=== PATIENT | female | born 1965 | race Caucasian/White ===

== ENCOUNTER 2021-04-20 00:03 | Day surgery (SDC) | payer OTHER, SELFPAY ==
[2021-04-06 13:26] VITALS: BMI 43.3
[2021-04-20 07:05] VITALS: BP 129/85; PULSE 77; RESP 18; TEMP 36.4; O2SAT 98; BMI 42.0
[2021-04-20] MEDS: LACTATED RINGERS 1,000 ML 150 ML IV CONT (07:26)
--- NOTE | 2021-04-20 08:08 | P.PNAN_ITS ---
Anes - Initial Pre Proc Eval Procedure: Operation Date: 04/20/21 08:30 Proposed Procedures p Screening Colonoscopy - Ilia Walker MD Date/Time: 04/20/21 08:08 Surgeon: Ilia Walker MD Pre Op Diagnosis: neoplasm screening Patient Data Age: 55 Gender: F Height: 1.6 m Weight: 107.8 kg Last Vital Signs Temp 97.6 F 04/20/21 07:05 Pulse 77 04/20/21 07:05 Resp 18 04/20/21 07:05 BP 129/85 04/20/21 07:05 Pulse Ox 98 04/20/21 07:05 Allergies Allergy/AdvReac Type Severity Reaction Status Date / Time Penicillins Allergy Unknown Verified 04/20/21 07:13 codeine AdvReac Vomiting Verified 04/20/21 07:13 levofloxacin AdvReac pain Verified 04/20/21 07:13 Home Medications Medication Instructions Recorded Confirmed Type cholecalciferol (vitamin D3) 25 mcg PO DAILY 04/06/21 04/20/21 History [Vitamin D3] ginkgo biloba 120 mg PO DAILY 04/06/21 04/20/21 History Patient hx anesthesia problems: none Family hx anesthesia problems: none Results Review: All pre-operative results and documents have been reviewed as part of the pre-operative evaluation. 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 Informed Consent: The patient's anesthetic plan and its attendant risks and benefits were discussed with the patient/family/POA. Questions were solicited and answers provided to the satisfaction of the patient/family/POA.
--- NOTE | 2021-04-20 08:12 | PM.HPGS ---
History of Present Illness History of Present Illness Consent: Risks, benefits, and alternatives have been discussed and questions answered. Patient agrees to proceed with procedure. Chief complaint: neoplasm screening Narrative: Pratibha Calvillo is a 55 year old female here for first colonoscopy, mother had colon cancer. Review of Systems Constitutional: Constitutional: Denies headache(s) and Denies weakness Eyes: Eyes: Denies blurry vision ENT: Reports Normal hearing present, Denies headache(s) and Denies neck pain Cardiovascular: Cardiovascular: Denies chest pain and Denies dyspnea Respiratory: Respiratory: Denies dyspnea Gastrointestinal: Gastrointestinal: Reports no additional gastrointestinal complaints Genitourinary: Genitourinary: Denies dysuria Musculoskeletal: Musculoskeletal: Denies neck pain Integumentary/Breasts: Skin/Breast: Denies dry skin Neurologic: Reports Normal hearing present, Denies headache(s) and Denies weakness Psychiatric: Psychiatric: Denies anxiety Endocrine: Endocrine: Denies change in body appearance Hematologic/Lymphatic: Hematologic/Lymphatic: Denies easy bleeding Allergic/Immunologic: Allergic/Immunologic: Denies urticaria PMFSH Past Medical History Medical History (Updated 04/20/21 @ 08:12 by Ilia Walker MD) Anemia Arthritis Family history of colon cancer in mother Mild hyperlipidemia Surgical History Surgical History History of hysterectomy History of nephrectomy Hx of cholecystectomy Hx of LASIK Social History Social History Smoking status: Former smoker Tobacco type: cigarettes Alcohol intake: never Alcohol use details: 3-4 drinks yearly Substance use: never Living arrangements: with family Additional occupation/education comments: client advocate Spiritual care concerns: No Meds Home Medications and Allergies Home Medications Medication Instructions Recorded Confirmed Type cholecalciferol (vitamin D3) 25 mcg PO DAILY 04/06/21 04/20/21 History [Vitamin D3] ginkgo biloba 120 mg PO DAILY 04/06/21 04/20/21 History Allergies Allergy/AdvReac Type Severity Reaction Status Date / Time Penicillins Allergy Unknown Verified 04/20/21 07:13 codeine AdvReac Vomiting Verified 04/20/21 07:13 levofloxacin AdvReac pain Verified 04/20/21 07:13 Vital Signs Vital Signs - 24 hr 04/20/21 07:05 Temperature 97.6 F Pulse Rate 77 Respiratory Rate 18 Blood Pressure 129/85 Pulse Oximetry 98 Exam Const: General: comfortable and no acute distress HENMT: General nose exam: Normal nares present Eyes: General: appearance normal, both eyes and all related structures Neck: Neck: no JVD Resp: Auscultation: clear to auscultation bilaterally Cardio: Rate: regular rate Rhythm: regular rhythm GI: Inspection: non-distended GI Palp: Yes Soft to palpation Skin: General skin exam: normal color Neuro: General: gait normal Speech: normal speech Extrem: General: normal to inspection Psych: Mental Status: mental status grossly normal Assessment and Plan Assessment and plan (1) Family history of colon cancer in mother: Code(s): Z80.0 - Family history of malignant neoplasm of digestive organs Status: Acute Assessment and Plan: colonoscopy
[2021-04-20 08:47] VITALS: BP 118/66; PULSE 91; RESP 23; O2SAT 97
[2021-04-20 08:57] VITALS: BP 109/67; PULSE 70; RESP 23; O2SAT 100
[2021-04-20 09:07] VITALS: BP 112/76; PULSE 75; RESP 23; O2SAT 100
== END 2021-04-20 09:11 | disposition home or self-care (01) ==
PROVIDERS: PCP Nurse Practitioner Family; Visit Provider Internal Medicine Gastroenterology
PROC: 0DJD8ZZ Inspection of Lower Intestinal Tract, Via Natural or Artificial Opening Endoscopic (ICD-10-PCS; CPT 45378; principal; 2021-04-20 08:30)
DX: Z12.11 Encounter for screening for malignant neoplasm of colon (principal); D12.3 Benign neoplasm of transverse colon; D12.5 Benign neoplasm of sigmoid colon; K63.5 Polyp of colon; K57.30 Diverticulosis of large intestine without perforation or abscess without bleeding; K64.8 Other hemorrhoids; Z80.0 Family history of malignant neoplasm of digestive organs; Z87.891 Personal history of nicotine dependence; E66.01 Morbid (severe) obesity due to excess calories; Z68.41 Body mass index [BMI] 40.0-44.9, adult; Z90.5 Acquired absence of kidney
CPT/HCPCS: 45385; 88305; J2704; J7120

== ENCOUNTER → 2021-05-04 16:32 | Outpatient (CLI) | payer OTHER, SELFPAY ==
--- NOTE | ~2021-05-04 | MM_ITS ---
EXAMINATION: MM screening ara BI w ailyn HISTORY: Screening mammogram TECHNIQUE: Craniocaudal and mediolateral oblique 3-D tomosynthesis images were obtained and synthetic 2-D images were generated. CAD analysis was submitted and interpreted. COMPARISON: 02/02/2017, 01/27/2016 BREAST PARENCHYMAL COMPOSITION: There are scattered areas of fibroglandular density. FINDINGS: Focal asymmetry in the posterior third of the right breast is decreased in density. There i s no suspicious mass, calcification, or architectural distortion to suggest malignancy in either [address]. There has been no suspicious interval change. IMPRESSION: 1. No mammographic evidence of malignancy. 2. Recommend routine screening mammography in one year. BI-RADS Category 2: Benign finding(s). Reviewed, dictated and finalized at location A.
== END ==
PROVIDERS: Visit Provider Nurse Practitioner Family
DX: Z12.31 Encounter for screening mammogram for malignant neoplasm of breast (principal)
CPT/HCPCS: 77063; 77067